=== PATIENT | female | born 1970 | race Caucasian/White ===

== ENCOUNTER 2016-09-11 22:46 | Inpatient (IN) | payer OTHER ==
[~2016-09-11] VITALS: Ht 160 cm; Wt 86.2 kg
[2016-09-11 23:29] LABS: HEMOGLOBIN 10.7 gm/dl (12.3-15.3); RED BLOOD COUNT 3.79 M/UL (4.00-5.10); WHITE BLOOD COUNT 17.5 K/UL (4.5-11.0)
[2016-09-13 05:57] LABS: HEMOGLOBIN 8.9 gm/dl (12.3-15.3)
[2016-09-14] MEDS ORDERED: COLACE 100MG C100 MG PO (09:56)
[2016-09-14] MEDS ORDERED: NORCO 5-325 TA1 EACH PO (09:56)
[2016-09-14] MEDS ORDERED: IBUPROFEN600 MG PO (09:59)
[2016-09-14] MEDS ORDERED: FERROUS SULFAT325 M2 PO (10:00)
== END 2016-09-14 10:20 | disposition home or self-care (01) | DRG 765 ==
LOC: GENOP 22:46 → OB 23:13
PROVIDERS: ADMIT Obstetrics & Gynecology
PROC: 3E0234Z Introduction of Serum, Toxoid and Vaccine into Muscle, Percutaneous Approach (ICD-10-PCS; 2016-09-12)
PROC: 10D00Z1 Extraction of Products of Conception, Low, Open Approach (ICD-10-PCS; principal; 2016-09-12 01:27)
DX: O76 Abnormality in fetal heart rate and rhythm complicating labor and delivery (principal); O99.324 Drug use complicating childbirth; F11.20 Opioid dependence, uncomplicated; O98.42 Viral hepatitis complicating childbirth; B19.20 Unspecified viral hepatitis C without hepatic coma; O99.334 Smoking (tobacco) complicating childbirth; F17.210 Nicotine dependence, cigarettes, uncomplicated; O99.214 Obesity complicating childbirth; O87.4 Varicose veins of lower extremity in the puerperium; Z3A.38 38 weeks gestation of pregnancy; Z37.0 Single live birth; Z83.3 Family history of diabetes mellitus; Z84.89 Family history of other specified conditions; Z80.9 Family history of malignant neoplasm, unspecified; Z23 Encounter for immunization
CPT/HCPCS: 36415; 80307; 82800; 85014; 85018; 85025; 90715; C9113; J0690; J2274; J2405; J2590; J2765; J2795; J3010; J3430; J7120